=== PATIENT | male | born 2000 | race Caucasian/White ===

== ENCOUNTER 2018-09-28 19:19 | Emergency (ER) | payer OTHER ==
[2018-09-28 19:24] VITALS: BP 143/68
[2018-09-28] MEDS ORDERED: IBUPROFEN 800 MG TAB PO ONE (19:33)
[2018-09-28] MEDS ORDERED: OXYCODONE/APAP 5/325 TAB PO ONE (19:48)
--- NOTE | 2018-09-28 19:52 | EDPHY ---
H & P Time Seen by Provider: 09/28/18 19:36 HPI/ROS: CHIEF COMPLAINT: Ankle pain HISTORY OF PRESENT ILLNESS: 18-year-old male was [place] when he slipped and fell, presents with a right ankle injury. Patient need to be assisted off of the trail. No head trauma. He does have abrasions on his knees bilaterally as well as elbows. Significant swelling of the right ankle. Denies any head injury, chest pain, loss consciousness. Rates his pain as a 7/10. REVIEW OF SYSTEMS: A comprehensive 10 system review of systems was reviewed and is otherwise negative aside from elements mentioned in the history of present illness and medical decision making. PAST MEDICAL HISTORY: Patient denies. SOCIAL HISTORY: [employer] student. Nonsmoker. VITAL SIGNS: see nurse's notes. GENERAL: Well-developed, well-nourished, in moderate distress secondary to right ankle pain HEENT: Atraumatic. Face is atraumatic. Neck is nontender to palpation, supple, FROM. LUNGS: Clear to auscultation bilaterally, no wheezes, rhonchi or rales. No palpable crepitus. Nontender chest wall. CARDIAC: Regular rate and rhythm, no rubs, murmurs or gallops. ABDOMEN: Soft, nontender, nondistended, bowel sounds normal. BACK: No CVA tenderness. No vertebral tenderness. EXTREMITIES: Right ankle: Significant swelling over the lateral malleoli. Slight inversion of the foot at rest. Mild swelling over the medial malleoli. Dorsalis pedis and posterior tibial pulses are intact. Abrasions over bilateral elbows. Abrasions over bilateral knees, left worse than right. Nonsuturable. NEURO: Alert and oriented, grossly nonfocal. SKIN: Warm and dry, no rash. Smoking Status: Never smoked Constitutional: Initial Vital Signs Temperature (C) 36.3 C 09/28/18 19:23 Heart Rate 86 09/28/18 19:23 Respiratory Rate 16 09/28/18 19:23 Blood Pressure 143/68 H 09/28/18 19:23 O2 Sat (%) 96 09/28/18 19:23 O2 Delivery Mode Room Air Allergies/Adverse Reactions: No Known Allergies Allergy (Verified 09/28/18 19:24) Home Medications: Medication Instructions Recorded Hydrocodone/APAP 5/325 [Broadlands 1 tab PO Q6H PRN #8 tab 09/28/18 5/325 (RX)] Medical Decision Making - Diagnostics Imaging Results: Right ankle: Impression: Soft tissue swelling without acute osseous abnormality. Dictated By: Valdez Yin MD Imaging: I viewed and interpreted images myself ED Course/Re-evaluation: Patient had taken ibuprofen prior to presentation. 1 [place] tablet was administered. X-ray of the right ankle demonstrates no acute fracture but significant soft tissue swelling. Patient was placed in a Vargas boot. He was given crutches. Advised to weight bear only as tolerated. He will follow up with Orthopedic surgery given the significant degree of swelling over the ankle. Patient and his parents understand the discharge instructions. Differential Diagnosis: Differential diagnosis of this patient's fall and injury was considered including but not limited to intracranial injury, long bone and pelvic bone fracture, spinal injury, intrathoracic injury, extremity injury, intra- abdominal injury, lacerations, abrasions, and contusions. - Data Points Medications Given: Discontinued Medications Hydrocodone Bitart/Acetaminophen ([place] 5/325mg Prepack#6) 1 btl TAKEHOME EDNOW ONE Stop: 09/28/18 20:17 Last Admin: 09/28/18 20:18 Dose: 1 btl Ibuprofen (Motrin) 800 mg PO EDNOW ONE Stop: 09/28/18 19:34 Last Admin: 09/28/18 19:37 Dose: 800 mg Oxycodone/Acetaminophen (Percocet 5/325) 1 tab PO EDNOW ONE Stop: 09/28/18 19:49 Last Admin: 09/28/18 19:53 Dose: 1 tab Departure - Departure Disposition: Home, Routine, Self-Care Clinical Impression: Severe sprain of right ankle, Abrasion of left elbow, initial encounter Condition: Good Instructions: Ankle Sprain (ED), Abrasion (ED) Additional Instructions: Mainstay of therapy is rest, ice, immobilization, elevation, and nonsteroidal anti-inflammatories for pain and to decrease swelling. Apply ice for 20-30 minutes every 2-3 hours for the next 48 hours. I recommend Ibuprofen (Motrin, Advil) or Naproxen Sodium (Aleve) for pain and anti-inflammatory effects. You may take either one, but do not take both. Your dose is: Ibuprofen 600 mg every 6-8 hours with food. OR Naproxen Sodium (Aleve) 220 mg every 12 hours. Okay to use hydrocodone as needed for severe pain. You have a significant sprain of your ankle. I recommend follow-up with both physical therapy as well as Orthopedic surgery. You been given referral to Dr. Allen, orthopedic surgeon. Please make an appointment for early next week. Weightbear as tolerated. I would try to avoid weight-bearing for the next several days. Followup with the physician as directed. Referrals: NONE *PRIMARY CARE P,. [Primary Care Provider] - As per Instructions Phil Allen MD [Medical Doctor] - As per Instructions Prescriptions: Hydrocodone/APAP 5/325 [Broad[place] 5/325 (RX)] 1 tab PO Q6H PRN #8 tab PRN Reason: Pain
[2018-09-28] MEDS ORDERED: HYDROCOD/APAP 5/325 PREPACK#6 BTL TAKEHOME ONE (20:16)
== END 2018-09-28 20:25 | disposition home or self-care (01) ==
DX: S93.401A Sprain of unspecified ligament of right ankle, initial encounter (principal); S50.312A Abrasion of left elbow, initial encounter; W01.0XXA Fall on same level from slipping, tripping and stumbling without subsequent striking against object, initial encounter
CPT/HCPCS: L4386